=== PATIENT | female | born 1945 | race Caucasian/White ===

== ENCOUNTER 2022-09-06 17:37 | Inpatient (IN) | payer MEDICARE ==
[~2022-09-06] VITALS: Ht 165.1 cm; Wt 51.3 kg
[2022-09-06 20:19] LABS: HEMATOCRIT. 34.7 % (36.0-48.0); MEAN CORPUSCULAR HEMOGLOBIN 30.8 pg (28.0-32.0); MEAN CORPUSCULAR VOLUME 96.8 fL (81.0-99.0); PLATELET 417 x1000/uL (130-400); RED BLOOD CELL COUNT 3.58 mill/uL (4.2-5.4); RED CELL DISTRIBUTION WIDTH 18.3 % (11.6-14.6)
[2022-09-06 20:27] LABS: CHLORIDE 109 mEq/L (98-107)
[2022-09-06 20:38] LABS: PLATELET ESTIMATE INCREASED
[2022-09-07 07:14] LABS: CLARITY URINE CLEAR (CLEAR); COLOR URINE YELLOW (YELLOW); SPECIFIC GRAVITY URINE 1.041 (1.005-1.030)
[2022-09-07 07:15] LABS: KETONES URINE TRACE (NEGATIVE); OCCULT BLOOD URINE NEGATIVE (NEGATIVE); PH URINE 5.5 (4.5-8.0); PROTEIN URINE 1+ (NEGATIVE)
[2022-09-07 07:16] LABS: LEUKOCYTE ESTERASE URINE NEGATIVE (NEGATIVE); NITRITE URINE NEGATIVE (NEGATIVE); UROBILINOGEN URINE 0.2 E.U./dL (0.2-1.0)
[2022-09-07] MEDS ORDERED: ONDANSETRON HCL 4MG/2ML INJ IV PRN (10:00)
[2022-09-07] MEDS ORDERED: HYDROCODONE/ACETAMINOPHEN 5/325MG TABLET PO PRN (10:00)
[2022-09-07] MEDS ORDERED: VANCOMYCIN 1G PREMIX 200 ML IV NR (10:30)
[2022-09-07] MEDS ORDERED: PIPERACILLIN/TAZ 3.375G PREMIX 50 ML IV SCH (11:00)
[2022-09-07] MEDS ORDERED: MORPHINE SULFATE 2 MG/ML CPJ (NOT FOR IM USE) IV PRN (17:45)
[2022-09-07] MEDS ORDERED: NALOXONE HCL 0.4MG/ML VIAL IV PRN (18:00)
[2022-09-07 19:07] LABS: BASOPHILS % 0.4 % (0.0-2.0); EOSINOPHILS % 2.6 % (0.0-5.0); HEMATOCRIT. 31.8 % (36.0-48.0); HEMOGLOBIN. 10.2 g/dL (12.0-16.0); MEAN CORPUSCULAR VOLUME 96.9 fL (81.0-99.0); MEAN PLATELET VOLUME 6.8 fl (7.4-10.4); MONOCYTES % 5.1 % (2.0-8.0); NEUTROPHILS % 83.9 % (40.0-76.0); PLATELET 370 x1000/uL (130-400); RED BLOOD CELL COUNT 3.28 mill/uL (4.2-5.4); RED CELL DISTRIBUTION WIDTH 17.8 % (11.6-14.6)
[2022-09-07 19:27] LABS: CHLORIDE 109 mEq/L (98-107)
[2022-09-07] MEDS ORDERED: SODIUM CHLORIDE 0.9% 1,000 ML IV ONE (22:15)
[2022-09-07 22:30] VITALS: BP 132/73
[2022-09-07] MEDS: HYDROMORPHONE HCL/PF 2MG/ML CPJ IV PRN (22:39)
[2022-09-07] MEDS: PIPERACILLIN/TAZOBACTAM 3.375 G in DEXTROSE 5% WATER 50 ML IV SCH (22:39)
[2022-09-07 23:00] VITALS: BP_SYST 109; BP_SYST 145; BP_DIAS 60; BP_DIAS 68
[2022-09-07 23:30] VITALS: BP 142/78
[2022-09-07 23:58] VITALS: BP 120/63
[2022-09-07] MEDS: DEXT 5%/LACTATED RINGERS 1,000 ML IV SCH (23:59)
[2022-09-08] VITALS (71 sets, daily range): BP systolic 96–151; BP diastolic 44–92
[2022-09-08] MEDS: HYDROMORPHONE HCL/PF 2MG/ML CPJ IV PRN ×3 (02:37→14:07)
[2022-09-08] MEDS ORDERED: LOPHC2 PO (05:01)
[2022-09-08] MEDS ORDERED: FOLI0.4T6 PO (05:01)
[2022-09-08] MEDS ORDERED: ASPI-1497 PO (05:01)
[2022-09-08] MEDS ORDERED: HYDR-4001 PO (05:01)
[2022-09-08] MEDS ORDERED: METH2.5T PO (05:01)
[2022-09-08] MEDS ORDERED: MELO-106 PO (05:01)
[2022-09-08] MEDS ORDERED: GABA-290 MT (05:01)
[2022-09-08] MEDS ORDERED: PANT40TA51 MT (05:01)
[2022-09-08] MEDS: PIPERACILLIN/TAZOBACTAM 3.375 G in DEXTROSE 5% WATER 50 ML IV SCH (05:09)
[2022-09-08 05:47] LABS: BASOPHILS % 0.4 % (0.0-2.0); EOSINOPHILS % 2.1 % (0.0-5.0); HEMATOCRIT. 32.3 % (36.0-48.0); HEMOGLOBIN. 10.5 g/dL (12.0-16.0); LYMPHOCYTES % 7.3 % (20.0-50.0); MEAN CORPUSCULAR HEMOGLOBIN 31.5 pg (28.0-32.0); MEAN CORPUSCULAR VOLUME 97.1 fL (81.0-99.0); MEAN PLATELET VOLUME 7.4 fl (7.4-10.4); NEUTROPHILS % 86.2 % (40.0-76.0); PLATELET 370 x1000/uL (130-400); RED BLOOD CELL COUNT 3.33 mill/uL (4.2-5.4); RED CELL DISTRIBUTION WIDTH 17.9 % (11.6-14.6)
[2022-09-08 05:57] LABS: CHLORIDE 106 mEq/L (98-107)
[2022-09-08] MEDS ORDERED: SKIN ADHESIVE 0.7 GM EA TOP ONE (06:11)
[2022-09-08] MEDS ORDERED: LIDOCAINE HCL 1%/EPI 1:200,000 30 ML VIAL ONE (06:11)
[2022-09-08] MEDS ORDERED: GENTAMICIN SULF 40MG/ML 2ML VIAL ONE (06:11)
[2022-09-08] MEDS ORDERED: THROMBIN (BOVINE) 5000 UNITS/VIAL TOP ONE (06:11)
[2022-09-08] MEDS ORDERED: ROCURONIUM BROMIDE 10MG/ML VIAL 5ML IV ONE ×2 (07:16→08:51)
[2022-09-08] MEDS ORDERED: MIDAZOLAM HCL 2 MG/2 ML VIAL ONE (07:17)
[2022-09-08] MEDS ORDERED: FENTANYL CITRATE/PF 50MCG/ML 2ML VIAL ONE (07:17)
[2022-09-08] MEDS ORDERED: PROPOFOL 200MG/20ML VIAL IV ONE (07:17)
[2022-09-08] MEDS ORDERED: PHENYLEPHRINE HCL 10 MG/ML 1ML (IV VIAL) IV ONE (08:23)
[2022-09-08] MEDS ORDERED: HYDROMORPHONE HCL/PF 2MG/ML CPJ ONE (08:50)
[2022-09-08] MEDS ORDERED: ONDANSETRON HCL 4MG/2ML INJ ONE (10:09)
[2022-09-08] MEDS ORDERED: DEXAMETHASONE 4MG/ML 1ML VIAL ONE (10:09)
[2022-09-08] MEDS ORDERED: METOCLOPRAMIDE HCL 10MG/2ML VIAL ONE (10:09)
[2022-09-08] MEDS ORDERED: LIDOCAINE HCL 1% 10 MG/ML 10ML VIAL ONE (10:11)
[2022-09-08] MEDS ORDERED: SODIUM CHLORIDE 0.9% 10ML VIAL ONE (10:11)
[2022-09-08] MEDS ORDERED: NEOSTIGMINE METHYLSULFATE 1MG/ML 10 ML VIAL ONE (10:13)
[2022-09-08] MEDS ORDERED: GLYCOPYRROLATE 0.2 MG/ML 2ML VIAL ONE ×2 (10:13→10:28)
[2022-09-08] MEDS ORDERED: KETOROLAC 30MG/ML VIAL ONE (10:28)
[2022-09-08] MEDS: DEXT 5%/LACTATED RINGERS 1,000 ML IV SCH (11:56)
[2022-09-08] MEDS ORDERED: NICARDIPINE 100 MG in SODIUM CHLORIDE 0.9% 60 ML IV PRN (12:15)
[2022-09-08] MEDS ORDERED: METOPROLOL TARTRATE 5MG/5ML VIAL IV NR (12:15)
[2022-09-08] MEDS ORDERED: ONDANSETRON INJ IV PRN (13:00)
[2022-09-08] MEDS ORDERED: DIPHENHYDRAMINE INJ IV PRN (13:00)
[2022-09-08] MEDS ORDERED: NALOXONE INJ IV PRN (13:00)
[2022-09-08] MEDS: DEXT 5%/0.45% NACL KCL 20MEQ/L 1,000 ML IV SCH ×2 (14:08→19:41)
[2022-09-08] MEDS ORDERED: VANCOMYCIN 750MG PREMIX 150 ML IV SCH (15:00)
[2022-09-08] MEDS: CEFAZOLIN 1000MG PREMIX 50 ML IV SCH ×2 (15:44→20:32)
[2022-09-08] MEDS: DEXAMETHASONE 4MG/ML 1ML VIAL IV SCH ×3 (15:44→23:20)
[2022-09-08] MEDS: HYDROMORPHONE PCA 10MG/50ML IV PRN (16:28)
[2022-09-08] MEDS: METOPROLOL TARTRATE 5MG/5ML VIAL IV PRN (18:12)
[2022-09-09] VITALS (137 sets, daily range): BP systolic 90–176; BP diastolic 41–120
[2022-09-09] MEDS: METOPROLOL TARTRATE 5MG/5ML VIAL IV PRN (02:32)
[2022-09-09] MEDS: DEXAMETHASONE 4MG/ML 1ML VIAL IV SCH ×4 (05:23→23:20)
[2022-09-09] MEDS: CEFAZOLIN 1000MG PREMIX 50 ML IV SCH (05:23)
[2022-09-09 05:34] LABS: HEMATOCRIT. 25.3 % (36.0-48.0); HEMOGLOBIN. 8.2 g/dL (12.0-16.0); MEAN CORPUSCULAR HEMOGLOBIN 31.1 pg (28.0-32.0); MEAN CORPUSCULAR VOLUME 95.8 fL (81.0-99.0); MEAN PLATELET VOLUME 7.3 fl (7.4-10.4); PLATELET 361 x1000/uL (130-400); RED BLOOD CELL COUNT 2.64 mill/uL (4.2-5.4); RED CELL DISTRIBUTION WIDTH 17.6 % (11.6-14.6)
[2022-09-09 05:56] LABS: CHLORIDE 108 mEq/L (98-107)
[2022-09-09] MEDS: DEXT 5%/0.45% NACL KCL 20MEQ/L 1,000 ML IV SCH (11:30)
[2022-09-09 11:43] LABS: PLATELET ESTIMATE NORMAL
[2022-09-09] MEDS: HYDROMORPHONE PCA 10MG/50ML IV PRN (18:58)
[2022-09-10] VITALS (61 sets, daily range): BP systolic 107–161; BP diastolic 44–69
[2022-09-10] MEDS: DEXT 5%/0.45% NACL KCL 20MEQ/L 1,000 ML IV SCH (00:14)
[2022-09-10] MEDS: DEXAMETHASONE 4MG/ML 1ML VIAL IV SCH ×3 (05:15→17:53)
[2022-09-10 05:43] LABS: HEMOGLOBIN. 7.6 g/dL (12.0-16.0); MEAN CORPUSCULAR HEMOGLOBIN 31.8 pg (28.0-32.0); MEAN CORPUSCULAR VOLUME 96.5 fL (81.0-99.0); MEAN PLATELET VOLUME 7.6 fl (7.4-10.4); PLATELET 319 x1000/uL (130-400); RED BLOOD CELL COUNT 2.38 mill/uL (4.2-5.4); RED CELL DISTRIBUTION WIDTH 17.3 % (11.6-14.6)
[2022-09-10 05:47] LABS: CHLORIDE 109 mEq/L (98-107)
[2022-09-10] MEDS ORDERED: METOPROLOL TARTRATE 100MG TABLET PO SCH (09:00)
[2022-09-10] MEDS ORDERED: METOPROLOL SUCCINATE 50MG ER TABLET PO SCH (09:00)
[2022-09-10] MEDS: METOPROLOL TARTRATE 50MG TABLET PO SCH ×2 (10:46→22:16)
[2022-09-10 12:03] LABS: PLATELET ESTIMATE NORMAL
[2022-09-10] MEDS: HYDROMORPHONE HCL/PF 2MG/ML CPJ IV PRN ×2 (17:53→22:17)
[2022-09-11 00:30] VITALS: BP 125/50
[2022-09-11 04:00] VITALS: BP 154/79
[2022-09-11 08:00] VITALS: BP 121/57
[2022-09-11] MEDS: METOPROLOL TARTRATE 50MG TABLET PO SCH ×2 (08:48→20:01)
[2022-09-11] MEDS: DEXAMETHASONE 4MG/ML 1ML VIAL IV SCH ×2 (08:49→18:46)
[2022-09-11] MEDS: HYDROMORPHONE HCL/PF 2MG/ML CPJ IV PRN ×3 (09:06→19:59)
[2022-09-11 12:00] VITALS: BP 128/61
[2022-09-11 16:00] VITALS: BP 138/73
[2022-09-11 20:00] VITALS: BP 135/63
[2022-09-12] VITALS: BP 116/52
[2022-09-12 04:00] VITALS: BP 144/72
[2022-09-12 06:14] LABS: CHLORIDE 102 mEq/L (98-107)
[2022-09-12 06:28] LABS: HEMATOCRIT. 26.1 % (36.0-48.0); HEMOGLOBIN. 8.5 g/dL (12.0-16.0); MEAN CORPUSCULAR HEMOGLOBIN 31.2 pg (28.0-32.0); MEAN CORPUSCULAR VOLUME 95.3 fL (81.0-99.0); MEAN PLATELET VOLUME 7.7 fl (7.4-10.4); PLATELET 353 x1000/uL (130-400); RED BLOOD CELL COUNT 2.74 mill/uL (4.2-5.4); RED CELL DISTRIBUTION WIDTH 17.5 % (11.6-14.6)
[2022-09-12 08:00] VITALS: BP 138/85
[2022-09-12] MEDS: DEXAMETHASONE 4MG/ML 1ML VIAL IV SCH ×2 (08:37→17:15)
[2022-09-12] MEDS: METOPROLOL TARTRATE 50MG TABLET PO SCH ×2 (08:38→20:54)
[2022-09-12] MEDS: HYDROMORPHONE HCL/PF 2MG/ML CPJ IV PRN ×3 (08:39→19:49)
[2022-09-12 10:39] LABS: NUCLEATED RED BLOOD CELLS 1 /100 WBC; PLATELET ESTIMATE NORMAL
[2022-09-12] MEDS ORDERED: BISACODYL 10MG SUPP PR PRN (10:45)
[2022-09-12] MEDS ORDERED: BISACODYL 10MG SUPP PR NR (10:45)
[2022-09-12] MEDS: POLYETHYLENE GLYCOL 3350 (17GM) 1 DOSE PACK PO SCH (11:28)
[2022-09-12 12:00] VITALS: BP 133/67
[2022-09-12 16:00] VITALS: BP 129/68
[2022-09-12] MEDS: DOCUSATE SODIUM 100MG CAPSULE PO SCH (17:14)
[2022-09-12 20:00] VITALS: BP 136/77
[2022-09-13] VITALS: BP 129/71
[2022-09-13 04:00] VITALS: BP 122/57
[2022-09-13 07:02] LABS: CHLORIDE 98 mEq/L (98-107)
[2022-09-13 07:04] LABS: HEMATOCRIT. 28.2 % (36.0-48.0); HEMOGLOBIN. 9.3 g/dL (12.0-16.0); MEAN CORPUSCULAR HEMOGLOBIN 31.4 pg (28.0-32.0); MEAN CORPUSCULAR VOLUME 95.7 fL (81.0-99.0); MEAN PLATELET VOLUME 8.1 fl (7.4-10.4); PLATELET 426 x1000/uL (130-400); RED BLOOD CELL COUNT 2.95 mill/uL (4.2-5.4); RED CELL DISTRIBUTION WIDTH 17.9 % (11.6-14.6)
[2022-09-13 08:00] VITALS: BP 146/71
[2022-09-13] MEDS: METOPROLOL TARTRATE 50MG TABLET PO SCH ×2 (08:46→21:20)
[2022-09-13] MEDS: DEXAMETHASONE 4MG/ML 1ML VIAL IV SCH (08:46)
[2022-09-13] MEDS: DOCUSATE SODIUM 100MG CAPSULE PO SCH ×2 (08:46→18:03)
[2022-09-13] MEDS: POLYETHYLENE GLYCOL 3350 (17GM) 1 DOSE PACK PO SCH (08:47)
[2022-09-13] MEDS: HYDROMORPHONE HCL/PF 2MG/ML CPJ IV PRN ×2 (08:56→15:28)
[2022-09-13 10:56] LABS: NUCLEATED RED BLOOD CELLS 1 /100 WBC; PLATELET ESTIMATE INCREASED
[2022-09-13 12:00] VITALS: BP 120/61
[2022-09-13] MEDS ORDERED: NA PHOS,M-B/NA PHOS,DI-BA ENEMA 118ML PR NR (13:00)
[2022-09-13] MEDS: LACTULOSE 20G/30ML UDC PO SCH ×3 (15:32→21:00)
[2022-09-13 16:57] LABS: HEMATOCRIT. 29.6 % (36.0-48.0); HEMOGLOBIN. 9.6 g/dL (12.0-16.0); MEAN CORPUSCULAR VOLUME 95.7 fL (81.0-99.0); MEAN PLATELET VOLUME 7.6 fl (7.4-10.4); PLATELET 475 x1000/uL (130-400); RED BLOOD CELL COUNT 3.09 mill/uL (4.2-5.4)
[2022-09-13 18:43] LABS: PLATELET ESTIMATE INCREASED
[2022-09-13 20:00] VITALS: BP 145/69
[2022-09-14] VITALS: BP 126/88
[2022-09-14 04:00] VITALS: BP 131/68
[2022-09-14 06:58] LABS: HEMOGLOBIN. 9.1 g/dL (12.0-16.0); MEAN CORPUSCULAR HEMOGLOBIN 31.4 pg (28.0-32.0); MEAN CORPUSCULAR VOLUME 96.5 fL (81.0-99.0); MEAN PLATELET VOLUME 7.9 fl (7.4-10.4); PLATELET 476 x1000/uL (130-400)
[2022-09-14 07:16] LABS: CHLORIDE 100 mEq/L (98-107)
[2022-09-14 08:00] VITALS: BP 129/61
[2022-09-14] MEDS ORDERED: NA PHOS,M-B/NA PHOS,DI-BA ENEMA 118ML PR PRN (09:00)
[2022-09-14] MEDS: DOCUSATE SODIUM 100MG CAPSULE PO SCH ×2 (09:00→16:35)
[2022-09-14] MEDS: POLYETHYLENE GLYCOL 3350 (17GM) 1 DOSE PACK PO SCH (09:00)
[2022-09-14] MEDS: METOPROLOL TARTRATE 50MG TABLET PO SCH ×2 (09:30→20:53)
[2022-09-14] MEDS: HYDROMORPHONE HCL/PF 2MG/ML CPJ IV PRN ×4 (09:30→23:01)
[2022-09-14 12:00] VITALS: BP 119/65
[2022-09-14 16:00] VITALS: BP 135/68
[2022-09-14] MEDS ORDERED: NALOXONE HCL 0.4MG/ML VIAL IV PRN (16:45)
[2022-09-14 17:37] LABS: NUCLEATED RED BLOOD CELLS 1 /100 WBC; PLATELET ESTIMATE INCREASED
[2022-09-14 20:00] VITALS: BP 142/73
[2022-09-15] VITALS: BP 132/69
[2022-09-15] MEDS: HYDROMORPHONE HCL/PF 2MG/ML CPJ IV PRN ×4 (03:03→17:26)
[2022-09-15 04:00] VITALS: BP 138/72
[2022-09-15 07:48] LABS: HEMATOCRIT. 28.5 % (36.0-48.0); HEMOGLOBIN. 9.3 g/dL (12.0-16.0); MEAN CORPUSCULAR HEMOGLOBIN 31.6 pg (28.0-32.0); MEAN CORPUSCULAR VOLUME 96.6 fL (81.0-99.0); MEAN PLATELET VOLUME 7.8 fl (7.4-10.4); PLATELET 509 x1000/uL (130-400); RED BLOOD CELL COUNT 2.95 mill/uL (4.2-5.4); RED CELL DISTRIBUTION WIDTH 17.4 % (11.6-14.6)
[2022-09-15 08:00] VITALS: BP 133/68
[2022-09-15] MEDS: POLYETHYLENE GLYCOL 3350 (17GM) 1 DOSE PACK PO SCH (09:00)
[2022-09-15] MEDS: DOCUSATE SODIUM 100MG CAPSULE PO SCH ×2 (09:00→17:26)
[2022-09-15] MEDS: METOPROLOL TARTRATE 50MG TABLET PO SCH ×2 (09:26→21:10)
[2022-09-15 12:00] VITALS: BP 116/60
[2022-09-15 16:00] VITALS: BP_SYST 118; BP_SYST 128; BP_DIAS 62; BP_DIAS 74
[2022-09-15 18:37] LABS: PLATELET ESTIMATE INCREASED
[2022-09-15 20:00] VITALS: BP 141/65
[2022-09-15] MEDS ORDERED: HYDROMORPHONE HCL/PF 2MG/ML CPJ IV PRN (23:45)
[2022-09-16] VITALS: BP 113/70
[2022-09-16 04:00] VITALS: BP 124/66
[2022-09-16] MEDS: DOCUSATE SODIUM 100MG CAPSULE PO SCH ×2 (09:45→17:15)
[2022-09-16] MEDS: POLYETHYLENE GLYCOL 3350 (17GM) 1 DOSE PACK PO SCH (09:46)
[2022-09-16] MEDS: METOPROLOL TARTRATE 50MG TABLET PO SCH (09:46)
[2022-09-16] MEDS ORDERED: HYDROCODONE/ACETAMINOPHEN 10/325MG TABLET PO PRN (11:00)
[2022-09-16 12:00] VITALS: BP 101/62
[2022-09-16 16:00] VITALS: BP 102/56
[2022-09-16 18:57] VITALS: BP 102/56
== END 2022-09-16 20:10 | DRG 459 ==
LOC: ER 17:37 → EDBEDREQTM 23:53 → EDBEDREQ 23:53 → MICUSO 09-07 00:22 → MICUNO 09-07 20:45 → 6EST 09-10 15:16 → 7EST 09-14 00:24 → 6EST 09-14 00:28 → 7EST 09-14 00:29
PROVIDERS: ADMIT Internal Medicine; ATTEND Internal Medicine
PROC: 0SG1071 Fusion of 2 or more Lumbar Vertebral Joints with Autologous Tissue Substitute, Posterior Approach, Posterior Column, Open Approach (ICD-10-PCS; principal; 2022-09-08)
PROC: 01NB0ZZ Release Lumbar Nerve, Open Approach (ICD-10-PCS; 2022-09-08)
PROC: 4A11X4G Monitoring of Peripheral Nervous Electrical Activity, Intraoperative, External Approach (ICD-10-PCS; 2022-09-08)
DX: S32.041A Stable burst fracture of fourth lumbar vertebra, initial encounter for closed fracture (principal); U07.1 COVID-19; E44.0 Moderate protein-calorie malnutrition; Z68.1 Body mass index [BMI] 19.9 or less, adult; K59.2 Neurogenic bowel, not elsewhere classified; M48.061 Spinal stenosis, lumbar region without neurogenic claudication; S32.031A Stable burst fracture of third lumbar vertebra, initial encounter for closed fracture; G89.4 Chronic pain syndrome; D72.829 Elevated white blood cell count, unspecified; M79.7 Fibromyalgia; M17.12 Unilateral primary osteoarthritis, left knee; M06.9 Rheumatoid arthritis, unspecified; I10 Essential (primary) hypertension; D64.9 Anemia, unspecified; N31.9 Neuromuscular dysfunction of bladder, unspecified; M81.0 Age-related osteoporosis without current pathological fracture; R26.9 Unspecified abnormalities of gait and mobility; R91.8 Other nonspecific abnormal finding of lung field; T38.0X5A Adverse effect of glucocorticoids and synthetic analogues, initial encounter; Z96.649 Presence of unspecified artificial hip joint; Z90.49 Acquired absence of other specified parts of digestive tract; X58.XXXA Exposure to other specified factors, initial encounter; Y93.89 Activity, other specified; Y92.89 Other specified places as the place of occurrence of the external cause; Y99.8 Other external cause status
CPT/HCPCS: 36415; 71045; 72100; 72141; 72146; 72148; 73560; 74018; 76000; 80048; 80053; 81003; 84145; 85025; 86850; 86900; 86920; 87426; 93005; 95925; 95926; 95929; 97110; 97162; 97166; 97530; 97535; 99285; A6261; C9803; J0690; J1100; J1170; J1200; J1580; J1885; J2250; J2370; J2405; J2543; J2704; J2710; J2765; J3010; J3370; J3490; J7030; J7050; J7060; C1713; C1762

== ENCOUNTER 2025-01-08 23:08 | Inpatient (IN) | payer MEDICARE, MEDICAID ==
[~2025-01-08] VITALS: Ht 149.9 cm; Wt 45.8 kg
[~2025-01-08 23:08] MED LIST: ACET-2708 MT; ASCO500C18 PO; ASPI-1497 PO; BETA1TAB21 MT; CALC-1042 MT; CARB1DRO OP; CIPR-263 MT; FOLI0.4T6 PO; GABA-290 MT; HYDR-4001 PO; LEVO-65 MT; LOPHC2 PO; MELO-106 PO; METH2.5T MT; MULT-1146 MT; PANT40TA51 MT; PRED5TAB MT; TURM500C6 PO
[2025-01-08 23:10] VITALS: O2SAT 97
[2025-01-09 00:03] LABS: BASOPHILS % 0.4 % (0.0-2.0); DIFFERENTIAL COMMENT 0; EOSINOPHILS % 0.7 % (0.0-5.0); HEMATOCRIT. 34.8 % (36.0-48.0); HEMOGLOBIN. 11.8 g/dL (12.0-16.0); LYMPHOCYTES % 14.6 % (20.0-50.0); MEAN CORPUSCULAR HEMOGLOBIN 36.5 pg (28.0-32.0); MEAN CORPUSCULAR HGB CONC 33.8 g/dL (31.0-37.0); MEAN CORPUSCULAR VOLUME 108.1 fL (81.0-99.0); MEAN PLATELET VOLUME 7.1 fl (7.4-10.4); NEUTROPHILS % 76.3 % (40.0-76.0); PLATELET 262 x1000/uL (130-400); RED BLOOD CELL COUNT 3.22 mill/uL (4.2-5.4); RED CELL DISTRIBUTION WIDTH 13.5 % (11.6-14.6); WHITE BLOOD COUNT 8.9 x1000/uL (4.5-11.0)
[2025-01-09 00:09] LABS: CHLORIDE 105 mEq/L (98-107); POTASSIUM 4.2 mEq/L (3.5-5.1); SODIUM 140 mEq/L (136-145)
[2025-01-09 00:10] LABS: CALCIUM 9.1 mg/dL (8.7-10.4); CARBON DIOXIDE 29 mEq/L (21-32)
[2025-01-09 00:11] LABS: PARTIAL THROMBOPLASTIN TIME 25.3 sec (23.4-31.0); PROTHROMBIN TIME 10.3 sec (9.6-11.0)
[2025-01-09 00:15] LABS: ETHANOL BLOOD < 10 mg/dL (<10); GLUCOSE 93 mg/dL (70-105); UREA NITROGEN BLOOD 15 mg/dL (9-23)
[2025-01-09 00:18] LABS: TROPONIN I HIGH SENSITIVITY < 4 ng/L (3.0-34)
[2025-01-09] MEDS ORDERED: ACETAMINOPHEN 325MG TABLET PO ONE (02:30)
[2025-01-09 03:30] VITALS: BP 118/53; PULSE 69; RESP 18; TEMP 36.4; TEMP 36.5; O2SAT 98
[2025-01-09] MEDS: ACETAMINOPHEN 500MG TABLET PO PRN (04:34)
[2025-01-09] MEDS: PANTOPRAZOLE 40MG DR TABLET PO SCH (06:36)
[2025-01-09] MEDS: GABAPENTIN 300MG CAPSULE PO SCH (06:36)
[2025-01-09] MEDS: PREDNISONE 5MG TABLET PO SCH (08:55)
[2025-01-09] MEDS: ASPIRIN 81MG TABLET PO SCH (08:55)
[2025-01-09] MEDS: MULTIVITAMINS,THER W-MINERALS TABLET PO SCH (08:56)
[2025-01-09] MEDS: MELOXICAM 7.5MG TABLET PO SCH (08:56)
[2025-01-09] MEDS: CALCIUM 1250MG TABLET (500MG ELEMENTAL CALCIUM) PO SCH (08:56)
[2025-01-09] MEDS: ASCORBIC ACID 500 MG TABLET PO SCH (08:56)
[2025-01-09] MEDS: ENOXAPARIN 30MG/0.3ML SYR SUBCUT SCH (08:57)
[2025-01-09] MEDS ORDERED: PREDNISOLONE 15 MG/5 ML ORAL SYRINGE PO SCH (09:00)
[2025-01-09 09:19] VITALS: BP 136/59; PULSE 67; RESP 17; TEMP 36.4; O2SAT 98
[2025-01-09 12:00] VITALS: BP 120/57; PULSE 77; RESP 18; TEMP 36.6; O2SAT 99
[2025-01-09] MEDS: HYDROCODONE/ACETAMINOPHEN 5/325MG TABLET PO PRN (13:48)
[2025-01-09 16:00] VITALS: BP 108/53; PULSE 74; RESP 18; TEMP 36.5; O2SAT 98
[2025-01-09] MEDS: ENOXAPARIN 60MG/0.6ML SYR SUBCUT SCH (17:47)
[2025-01-09 20:00] VITALS: BP 113/58; PULSE 85; RESP 19; TEMP 36.6; O2SAT 98
[2025-01-10] VITALS: BP 128/56; PULSE 75; RESP 18; TEMP 37.1; O2SAT 100
[2025-01-10 04:00] VITALS: BP 112/54; PULSE 75; RESP 19; TEMP 36.6; O2SAT 98
[2025-01-10 06:30] LABS: BASOPHILS % 0.4 % (0.0-2.0); DIFFERENTIAL COMMENT 0; EOSINOPHILS % 1.8 % (0.0-5.0); HEMATOCRIT. 34.6 % (36.0-48.0); HEMOGLOBIN. 11.7 g/dL (12.0-16.0); LYMPHOCYTES % 23.8 % (20.0-50.0); MEAN CORPUSCULAR HEMOGLOBIN 36.2 pg (28.0-32.0); MEAN CORPUSCULAR HGB CONC 33.8 g/dL (31.0-37.0); MEAN CORPUSCULAR VOLUME 107.1 fL (81.0-99.0); MEAN PLATELET VOLUME 7.5 fl (7.4-10.4); MONOCYTES % 7.9 % (2.0-8.0); NEUTROPHILS % 66.1 % (40.0-76.0); PLATELET 240 x1000/uL (130-400); RED BLOOD CELL COUNT 3.23 mill/uL (4.2-5.4); RED CELL DISTRIBUTION WIDTH 13.5 % (11.6-14.6); WHITE BLOOD COUNT 7.2 x1000/uL (4.5-11.0)
[2025-01-10 06:50] LABS: CALCIUM 9.3 mg/dL (8.7-10.4); CHLORIDE 107 mEq/L (98-107); SODIUM 142 mEq/L (136-145)
[2025-01-10 06:51] LABS: CARBON DIOXIDE 28 mEq/L (21-32)
[2025-01-10 06:56] LABS: CREATINE KINASE MB FRACTION 0.6 ng/mL (0.5-3.6); GLUCOSE 77 mg/dL (70-105); UREA NITROGEN BLOOD 15 mg/dL (9-23)
[2025-01-10 06:58] LABS: CREATINE KINASE 28 IU/L (34-145)
[2025-01-10 06:59] LABS: VITAMIN B12 SERUM 1320 pg/mL (211-911)
[2025-01-10 07:01] LABS: T4 FREE 1.39 ng/dL (0.89-1.76); THYROID STIMULATING HORMONE 0.79 uIU/mL (0.55-4.78)
[2025-01-10 07:03] LABS: CREATININE 0.5 mg/dL (0.6-1.0); TROPONIN I HIGH SENSITIVITY < 4 ng/L (3.0-34)
[2025-01-10 08:00] VITALS: BP 102/54; PULSE 81; RESP 19; TEMP 36.4; O2SAT 98
[2025-01-10 12:00] VITALS: BP 98/48; PULSE 86; RESP 19; TEMP 36.3; O2SAT 98
[2025-01-10 16:00] VITALS: BP 121/70; PULSE 83; RESP 17; TEMP 36.1; O2SAT 98
[2025-01-10] MEDS ORDERED: APIX5TAB MT (16:31)
[2025-01-10] MEDS ORDERED: NALOXONE HCL 0.4MG/ML VIAL IV PRN (19:45)
[2025-01-10 20:00] VITALS: BP 130/61; PULSE 84; RESP 20; TEMP 36.2; O2SAT 97
[2025-01-10] MEDS ORDERED: IOHEXOL-350 100 ML BOTTLE ONE (23:59)
[2025-01-11] VITALS: BP 102/50; PULSE 78; RESP 19; TEMP 36.3; O2SAT 98
[2025-01-11 04:00] VITALS: BP 128/59; PULSE 78; RESP 20; TEMP 36.3; O2SAT 98
[2025-01-11 08:00] VITALS: BP 111/54; PULSE 87; RESP 17; TEMP 36.4; O2SAT 97
[2025-01-14] MEDS ORDERED: METHOTREXATE SODIUM 2 . 5MG TABLET PO SCH (09:00)
== END 2025-01-11 11:00 | disposition home or self-care (01) | DRG 299 ==
LOC: ER 23:08 → 6WST 01-09 01:07
PROVIDERS: ADMIT Internal Medicine; ATTEND Internal Medicine
DX: I82.621 Acute embolism and thrombosis of deep veins of right upper extremity (principal); L89.153 Pressure ulcer of sacral region, stage 3; I47.10 Supraventricular tachycardia, unspecified; I82.411 Acute embolism and thrombosis of right femoral vein; R53.83 Other fatigue; M19.90 Unspecified osteoarthritis, unspecified site; M06.9 Rheumatoid arthritis, unspecified; D64.9 Anemia, unspecified; M81.0 Age-related osteoporosis without current pathological fracture; Z79.01 Long term (current) use of anticoagulants; Z79.899 Other long term (current) drug therapy; Z85.9 Personal history of malignant neoplasm, unspecified
CPT/HCPCS: 36415; 71045; 71275; 74176; 80048; 80320; 82550; 82553; 82607; 83880; 84439; 84443; 84481; 84484; 85025; 93005; 93306; 93970; 99285; J1650; J7512; Q9967; G0480